=== PATIENT | female | born 1975 | race Two or more races ===

== ENCOUNTER 2019-08-25 13:36 | Emergency (ER) | payer MEDICAID ==
[~2019-08-25] VITALS: Ht 162.6 cm; Wt 111.1 kg
[2019-08-25] MEDS ORDERED: METFORMIN HCL1000 M2 ORAL (13:50)
[2019-08-25] MEDS ORDERED: SIMVASTATIN20 MG ORAL (13:50)
[2019-08-25] MEDS ORDERED: PROVERA10 MG ORAL (13:50)
[2019-08-25] MEDS ORDERED: FERROUS SULFAT325 MG ORAL (13:50)
--- NOTE | 2019-08-25 14:00 | NUR ---
ED Nurse Note: Pt came in due to RLQ abd cramping with large amount of dark red vaginal bleeding since 08/05/19 with blood clots. Denies hx of . Pt states she almost passed out this morning and feels dizzy. AAO x4 and ambulatory with non labored breathing. Skin is warm and dry.
[2019-08-25 14:16] VITALS: BP 145/89
[2019-08-25 14:40] LABS: BASOPHILS % (AUTO) 0.7 % (0.0-2.0); EOSINOPHILS % (AUTO) 2.6 % (0.0-3.0); HEMATOCRIT 36.8 % (37.0-47.0); HEMOGLOBIN 11.5 G/DL (12.0-16.0); LYMPHOCYTES % (AUTO) 26.2 % (20.0-45.0); MEAN CORPUSCULAR VOLUME 81 FL (80-99); MONOCYTES % (AUTO) 7.4 % (1.0-10.0); NEUTROPHILS % (AUTO) 63.2 % (45.0-75.0); PLATELET COUNT 310 K/UL (150-450); RED BLOOD COUNT 4.52 M/UL (4.20-5.40); RED CELL DISTRIBUTION WIDTH 14.7 % (11.6-14.8); WHITE BLOOD COUNT 8.1 K/UL (4.8-10.8)
--- NOTE | 2019-08-25 14:45 | Emergency Room Report ---
History of Present Illness General Chief Complaint: Vaginal Source: Patient Present Illness HPI This patient states that she has a history of fibroids. She states that she also was told about a month ago that she had anemia. She has been taking iron supplements for this. She does have an appointment in September for consultation with an [employer] for possible hysterectomy. She states that she has had heavy vaginal bleeding for the past 2 weeks. She is also developed cramping in her pelvis. She states that over the past day her symptoms have been more severe. She states she is having very large clots and that she has felt lightheaded and short of breath. She states overall she feels terrible. She denies recent illness. Denies fever chills. She denies nausea or vomiting. She has no other complaints. Allergies: Coded Allergies: No Known Allergies (Unverified , 08/25/19) Patient History Past Medical History: see triage record, DM, HTN, other - Fibroids, anemia Past Surgical History: none Social History: Denies: smoking, alcohol use, drug use Reviewed Nursing Documentation: PMH: Agreed; PSxH: Agreed Nursing Documentation-PMH Hx Hypertension: Yes Review of Systems All Other Systems: negative except mentioned in HPI Physical Exam Vital Signs Date Time Temp Pulse Resp B/P (MAP) Pulse Ox O2 Delivery O2 Flow Rate FiO2 08/25/19 13:47 99.3 99 17 151/90 (110) 96 Room Air Sp02 EP Interpretation: reviewed, normal General Appearance: no apparent distress, alert, GCS 15, non-toxic Head: normocephalic, atraumatic Eyes: bilateral eye normal inspection, bilateral eye PERRL ENT: hearing grossly normal, normal pharynx, no angioedema, normal voice Neck: full range of motion, supple/symm/no masses Respiratory: chest non-tender, lungs clear, normal breath sounds, no respiratory distress, no retraction, no accessory muscle use, speaking full sentences Cardiovascular #1: regular rate, rhythm, no edema Gastrointestinal: normal bowel sounds, soft, non-distended, no guarding, no rebound, tenderness - TTP in the R. lower abdomen and pelvis Rectal: deferred Musculoskeletal: back normal, gait/station normal, normal range of motion, non- tender Neurologic: alert, oriented x3, responsive, motor strength/tone normal, sensory intact, speech normal Psychiatric: judgement/insight normal, memory normal, mood/affect normal, no suicidal/homicidal ideation Skin: no rash, normal color Medical Decision Making Diagnostic Impression: Primary Impression: Vaginal bleeding Additional Impressions: Fibroid uterus Poorly controlled diabetes mellitus Noncompliance with medication regimen ER Course This patient has had ongoing vaginal bleeding related to fibroids. Patient is anemic but not to a level that would require a blood transfusion. Patient also has uncontrolled diabetes. The patient's blood sugar was over 300 on arrival. When I inquired with the patient about this, she stated that she had not been taking her diabetes or blood pressure medications because she is more focused on her vaginal bleeding. I suspect that a lot of the patient's symptoms are related to her uncontrolled diabetes and dehydration related to polyuria. The patient was educated extensively on the dangers of hyperglycemia. She was given 3 L of normal saline in the emergency department and her normal dose of her oral metformin. A repeat blood sugar was obtained and this was 171. The patient was instructed to follow-up very closely with her primary care physician for repeat hemoglobin/hematocrit within the next 72 hours. She was also instructed to return if her bleeding continues to be heavy or worsens. She indicated understanding. She is given close return precautions and follow- up instructions. Laboratory Tests Test 08/25/19 14:15 White Blood Count 8.1 K/UL (4.8-10.8) Red Blood Count 4.52 M/UL (4.20-5.40) Hemoglobin 11.5 G/DL (12.0-16.0) L Hematocrit 36.8 % (37.0-47.0) L Mean Corpuscular Volume 81 FL (80-99) Mean Corpuscular Hemoglobin 25.4 PG (27.0-31.0) L Mean Corpuscular Hemoglobin Concent 31.2 G/DL (32.0-36.0) L Red Cell Distribution Width 14.7 % (11.6-14.8) Platelet Count 310 K/UL (150-450) Mean Platelet Volume 6.9 FL (6.5-10.1) Neutrophils (%) (Auto) 63.2 % (45.0-75.0) Lymphocytes (%) (Auto) 26.2 % (20.0-45.0) Monocytes (%) (Auto) 7.4 % (1.0-10.0) Eosinophils (%) (Auto) 2.6 % (0.0-3.0) Basophils (%) (Auto) 0.7 % (0.0-2.0) Prothrombin Time 10.0 SEC (9.30-11.50) Prothrombin Time INR 0.9 (0.9-1.1) PTT 26 SEC (23-33) Urine Color Pale yellow Urine Appearance Slightly cloudy Urine pH 5 (4.5-8.0) Urine Specific [place] 1.015 (1.005-1.035) Urine Protein 2+ (NEGATIVE) H Urine Glucose (UA) 4+ (NEGATIVE) H Urine Ketones Negative (NEGATIVE) Urine Blood 5+ (NEGATIVE) H Urine Nitrite Negative (NEGATIVE) Urine Bilirubin Negative (NEGATIVE) Urine Urobilinogen Normal MG/DL (0.0-1.0) Urine Leukocyte Esterase 1+ (NEGATIVE) H Urine RBC Tntc /HPF (0 - 2) H Urine WBC 5-10 /HPF (0 - 2) H Urine Squamous Epithelial Cells Occasional /LPF Urine Bacteria Few /HPF (NONE) Urine HCG, Qualitative Negative (NEGATIVE) Sodium Level 141 MMOL/L (136-145) Potassium Level 3.8 MMOL/L (3.5-5.1) Chloride Level 105 MMOL/L (98-107) Carbon Dioxide Level 27 MMOL/L (21-32) Anion Gap 9 mmol/L (5-15) Blood Urea Nitrogen 9 mg/dL (7-18) Creatinine 1.0 MG/DL (0.55-1.30) Estimate Glomerular Filtration Rate > 60 mL/min (>60) Glucose Level 341 MG/DL (74-106) H Calcium Level 9.3 MG/DL (8.5-10.1) Total Bilirubin 0.3 MG/DL (0.2-1.0) Aspartate Amino Transferase (AST) 47 U/L (15-37) H Alanine Aminotransferase (ALT) 65 U/L (12-78) Alkaline Phosphatase 190 U/L (46-116) H Total Protein 7.4 G/DL (6.4-8.2) Albumin 3.4 G/DL (3.4-5.0) Globulin 4.0 g/dL Albumin/Globulin Ratio 0.9 (1.0-2.7) L Lipase 243 U/L (73-393) Human Chorionic Gonadotropin, Quant 1 mIU/mL (1-6) CT/MRI/US Diagnostic Results CT/MRI/US Diagnostic Results : Imaging Test Ordered: Pelvic US: Impression Fibroids. See official report in electronic medical record. Last Vital Signs Date Time Temp Pulse Resp B/P (MAP) Pulse Ox O2 Delivery O2 Flow Rate FiO2 08/25/19 13:47 99.3 99 17 151/90 (110) 96 Room Air Status: improved Disposition: HOME, SELF-CARE Condition: Improved Scripts Acetaminophen With Codeine (T#3) (TYLENOL #3 TAB*) Y Tab 1 TAB ORAL Q8H PRN for For Pain, #20 TAB Prov: Kimberli Barajas DO 08/25/19 Noreth A-Et Estra/Fe Fumarate (LO LOESTRIN FE 1-10 TABLET) 1 Each Tablet 1 EACH PO DAILY, #30 TAB Prov: Kimberli Barajas DO 08/25/19 Ibuprofen* (MOTRIN*) 600 Mg Tablet 600 MG ORAL THREE TIMES A DAY, #30 TAB 0 Refills Prov: Kimberli Barajas DO 08/25/19 Kimberli Barajas DO Aug 25, 2019 14:45
[2019-08-25 14:48] LABS: INR 0.9 (0.9-1.1)
[2019-08-25 14:52] LABS: APPEARANCE,URINE SLIGHTLY CLOUDY; BILIRUBIN, URINE NEGATIVE (NEGATIVE); COLOR,URINE PALE YELLOW; GLUCOSE, URINE (UA) 4+ (NEGATIVE); KETONES,URINE NEGATIVE (NEGATIVE); LEUKOCYTE ESTERASE ,URINE 1+ (NEGATIVE); NITRITE,URINE NEGATIVE (NEGATIVE); PH,URINE 5 (4.5-8.0); PROTEIN,URINE 2+ (NEGATIVE); UROBILINOGEN,URINE NORMAL MG/DL (0.0-1.0)
[2019-08-25 14:53] LABS: ANION GAP 9 mmol/L (5-15); BLOOD UREA NITROGEN 9 mg/dL (7-18); CALCIUM 9.3 MG/DL (8.5-10.1); CARBON DIOXIDE 27 MMOL/L (21-32); CHLORIDE 105 MMOL/L (98-107); POTASSIUM 3.8 MMOL/L (3.5-5.1); SODIUM 141 MMOL/L (136-145)
[2019-08-25 14:57] LABS: ALANINE AMINOTRANSFERASE 65 U/L (12-78); ALBUMIN 3.4 G/DL (3.4-5.0); ALBUMIN/GLOBULIN RATIO 0.9 (1.0-2.7); ALKALINE PHOSPHATASE 190 U/L (46-116); ASPARTATE AMINO TRANSFERASE 47 U/L (15-37); BILIRUBIN,TOTAL 0.3 MG/DL (0.2-1.0)
--- NOTE | 2019-08-25 15:09 | NUR ---
ED Nurse Note: US staff at the bed side.
[2019-08-25] MEDS ORDERED: metFORMIN 500mg tab ORAL ONE (15:30)
[2019-08-25 16:30] VITALS: BP 147/84
--- NOTE | 2019-08-25 16:34 | Diagnostic Imaging Report ---
Indication:Lower abdominal and pelvic pain Technique: Grayscale and duplex Doppler imaging of the pelvis performed utilizing a transabdominal and endovaginal scan. Comparison: None Findings: The uterus is heterogeneous. There is a probable fibroid in the uterine fundus measuring 3 to 4 cm. These are not well seen. The endometrium is 5 mm in thickness. There is no endometrial fluid. There are cervical nabothian cysts present. Neither ovary is well seen. The uterus measures 11 x 7 x 7 cm. There is no free fluid. IMPRESSION: Heterogeneous uterus nonspecific. One or 2 fibroids likely present in the uterine fundus region. Ovaries not well appreciated well evaluated on this examination.
[2019-08-25] MEDS ORDERED: LO LOESTRIN FE1 EAC1 PO (17:13)
[2019-08-25] MEDS ORDERED: IBUPROFEN600 MG ORAL (17:13)
[2019-08-25] MEDS ORDERED: ACETAMINOPHEN-1 EAC1 ORAL (17:28)
[2019-08-25] MEDS ORDERED: Tylenol #3 tab (300mg/30mg) ORAL ONE (17:30)
[2019-08-25 18:35] VITALS: BP 137/80
--- NOTE | 2019-08-25 19:07 | NUR ---
ED Nurse Note: Pt states she feels a lot better after the fluids and medications. Friend at the bed side.
[2019-08-25 19:55] VITALS: BP 132/78
--- NOTE | 2019-08-25 19:55 | NUR ---
ER DISCHARGE NOTE: Patient is cleared to be discharged per ERMD, pt is aox4, on room air, with stable vital signs. pt was given dc and prescription instructions, pt was able to verbalize understanding, pt id band and iv site removed without complications. pt is able to ambulate with steady gait. pt took all belongings and left with her daughter in law.
== END 2019-08-25 19:55 | disposition home or self-care (01) ==
LOC: EMR 14:30
DX: N93.9 Abnormal uterine and vaginal bleeding, unspecified (principal); D25.9 Leiomyoma of uterus, unspecified; Z91.14 Patient's other noncompliance with medication regimen; E11.65 Type 2 diabetes mellitus with hyperglycemia; I10 Essential (primary) hypertension
CPT/HCPCS: 36415; 76830; 76856; 80053; 81003; 81025; 83690; 84702; 85025; 85610; 85730; 86850; 86900; 86901; 96360; Z7502; 99284